=== PATIENT | male | born 1970 | race Two or more races ===

== ENCOUNTER 2017-07-14 17:13 | Emergency (ER) | payer SELFPAY ==
[2017-07-14 17:25] VITALS: TEMP 98; BMI 31.9
--- NOTE | 2017-07-14 17:30 | PDOC ---
Rapid Medical Evaluation Chief Complaint: Blood Pressure Problem Time Seen by Provider: 07/14/17 17:25 Medical Evaluation: Allergies Allergy/AdvReac Type Severity Reaction Status Date / Time No Known Allergies Allergy Verified 07/14/17 17:21 Vital Signs Temp Pulse Resp BP Pulse Ox 98 F 63 19 186/100 99 07/14/17 17:21 07/14/17 17:21 07/14/17 17:21 07/14/17 17:21 07/14/17 17:21 07/14/17 17:25 Pt c/o:sent from urgent care clinic after being seen for leg pain and had nioted elevated BP. Pt states hxof htn but not on meds x 3 years. Pt asymptomatic Pt on brief exam: 180/100, lcta, no edema, hr 63 Pt ordered for : cbc, comp, ua, cxr, ekg Pt to proceed to the ED Discharge Disposition - Diagnosis Abnormal blood pressure - Referrals - Patient Instructions - Post Discharge Activity
[2017-07-14 18:04] LABS: BASO % 0.8 % (0-2.0); EOS % 1.5 % (0-4.5); HEMATOCRIT 46.7 % (35.4-49); HEMOGLOBIN 15.9 GM/dL (11.7-16.9); LYMPH % 26.8 % (8-40); MCH 31.4 pg (25.7-33.7); MCHC 34.1 g/dl (32.0-35.9); MEAN CELL VOLUME 91.9 fl (80-96); MEAN PLT VOLUME 9.7 fl (7.5-11.1); MONO % 9.4 % (3.8-10.2); NEUT % 61.5 % (42.8-82.8); PLATELET COUNT 284 K/MM3 (134-434); RBC 5.08 M/mm3 (4.00-5.60); WHITE BLOOD COUNT 8.3 K/mm3 (4.0-10.0)
[2017-07-14 18:24] LABS: ALBUMIN 3.8 g/dl (3.4-5.0); ALK PHOS 108 U/L (45-117); ANION GAP 5 (8-16); BILIRUBIN,TOTAL 0.3 mg/dL (0.2-1.0); BLOOD UREA NITROGEN 11 mg/dL (7-18); CALCIUM 8.5 mg/dL (8.5-10.1); CHLORIDE 108 mmol/L (98-107); CO2 26 mmol/L (21-32); CREATININE 0.8 mg/dL (0.7-1.3); GLUCOSE,RANDOM 87 mg/dL (74-106); POTASSIUM 3.9 mmol/L (3.5-5.1); SGOT/AST 21 U/L (15-37); SGPT/ALT 39 U/L (12-78); SODIUM 139 mmol/L (136-145); TOT PROT 7.6 g/dl (6.4-8.2)
[2017-07-14 18:36] LABS: URINE APPEARANCE CLEAR; URINE BILIRUBIN NEGATIVE (<2.0 mg/dL); URINE BLOOD NEGATIVE (NEGATIVE); URINE COLOR YELLOW; URINE GLUCOSE (UA) NEGATIVE (NEGATIVE); URINE KETONE NEGATIVE (NEGATIVE); URINE LEUK ESTERASE NEGATIVE (NEGATIVE); URINE NITRITE NEGATIVE (NEGATIVE)
[2017-07-14 18:39] LABS: URINE PROTEIN 1+ (NEGATIVE)
[2017-07-14 18:41] LABS: EPI CELLS RARE /HPF (FEW); URINE MUCUS RARE
[2017-07-14] MEDS ORDERED: HYDROCHLOROTHIAZIDE 25 MG TABLET (FP) PO ONE (19:00)
[2017-07-14] MEDS ORDERED: amLODIPine BESYLATE 10 MG TABLET (FP) PO ONE (19:01)
[2017-07-14] MEDS ORDERED: HYDROCHLOROTHIAZIDE 25 MG TABLET (FP) ONE (19:02)
[2017-07-14] MEDS ORDERED: amLODIPine BESYLATE 5 MG TABLET (FP) ONE (19:04)
--- NOTE | 2017-07-14 19:58 | PDOC ---
History of Present Illness - General History Source: Patient Exam Limitations: No Limitations - History of Present Illness Initial Comments: The patient is a 46 year old female with a significant past medical history of hypertension who presents to the emergency department for evaluation of high blood pressure and right calf swelling. The patient reports being referred to ED from [facility] for evaluation of high blood pressure. The patient reports being given Keflex from clinic for possible infection of right calf. The patient admits he has not been on medication of hypertension for 5 years. The patient denies chest pain, shortness of breath, headache, and dizziness. Denies fevers, chills, nausea, vomiting, diarrhea, and constipation. Denies dysuria, frequency, urgency, and hematuria. Allergies: NKDA Past surgical history: Cardiac catheterization Social history: No reported cigarette, alcohol, or drug use. <Lesley Gleason - Last Filed: 07/14/17 20:00> <Ann Lara - Last Filed: 07/14/17 20:58> - General Chief Complaint: Blood Pressure Problem Stated Complaint: BLOOD PRESSURE Time Seen by Provider: 07/14/17 17:25 Past History <Lesley Gleason - Last Filed: 07/14/17 20:00> - Past Medical History COPD: No HTN: Yes - Suicide/Smoking/Psychosocial Hx Smoking History: Never smoked <Ann Lara - Last Filed: 07/14/17 20:58> - Past Medical History Allergies/Adverse Reactions: Allergies Allergy/AdvReac Type Severity Reaction Status Date / Time No Known Allergies Allergy Verified 07/14/17 17:21 Review of Systems - Review of Systems Able to Perform ROS?: Yes Comments:: CONSTITUTIONAL: Absent: fever, chills, diaphoresis, generalized weakness, malaise, loss of appetite HEENT: Absent: rhinorrhea, nasal congestion, throat pain, throat swelling, difficulty swallowing, mouth swelling, ear pain, eye pain, visual Changes CARDIOVASCULAR: Absent: chest pain, syncope, palpitations, irregular heart rate, lightheadedness , peripheral edema RESPIRATORY: Absent: cough, shortness of breath, dyspnea with exertion, orthopnea, wheezing, stridor, hemoptysis GASTROINTESTINAL: Absent: abdominal pain, abdominal distension, nausea, vomiting, diarrhea, constipation, melena, hematochezia GENITOURINARY: Absent: dysuria, frequency, urgency, hesitancy, hematuria, flank pain, genital pain MUSCULOSKELETAL: Absent: myalgia, arthralgia, joint swelling SKIN: Absent: rash, itching, pallor HEMATOLOGIC/IMMUNOLOGIC: Absent: easy bleeding, easy bruising, lymphadenopathy, frequent infections ENDOCRINE: Absent: unexplained weight gain, unexplained weight loss, heat intolerance, cold intolerance NEUROLOGIC: Absent: headache, focal weakness or paresthesias, dizziness, unsteady gait, seizure, mental status changes, bladder or bowel incontinence PSYCHIATRIC: Absent: anxiety, depression, suicidal or homicidal ideation, hallucinations. <Lesley Gleason - Last Filed: 07/14/17 20:00> *Physical Exam - Vital Signs Last Vital Signs Temp Pulse Resp BP Pulse Ox 98 F 62 18 177/95 100 07/14/17 17:21 07/14/17 19:53 07/14/17 19:53 07/14/17 19:53 07/14/17 18:29 - Physical Exam Comments: GENERAL: Well developed, well nourished. Awake and alert. No acute distress. HEENT: Normocephalic, atraumatic. PERRLA, EOMI. No conjunctival pallor. Sclera are non- icteric. Moist mucous membranes. Oropharynx is clear. NECK: Supple. Full ROM. No JVD. Carotid pulses 2+ and symmetric, without bruits. No thyromegaly. No lymphadenopathy. CARDIOVASCULAR: Regular rate and rhythm. No murmurs, rubs, or gallops. Distal pulses are 2+ and symmetric. PULMONARY: No evidence of respiratory distress. Lungs clear to auscultation bilaterally. No wheezing, rales or rhonchi. ABDOMINAL: Soft. Non-tender. Non-distended. No rebound or guarding. No organomegaly. Normoactive bowel sounds. MUSCULOSKELETAL Normal range of motion at all joints. No bony deformities or tenderness. No CVA tenderness. EXTREMITIES: (+)[id number] area of induration, no red streaking. SKIN: Warm and dry. Normal capillary refill. No rashes. No jaundice. NEUROLOGICAL: Alert, awake, appropriate. Cranial nerves 2-12 intact. No deficits to light touch and temperature in face, upper extremities and lower extremities. No motor deficits in the in face, upper extremities and lower extremities. Normoreflexic in the upper and lower extremities. Normal speech. Toes are down- going bilaterally. PSYCHIATRIC: Cooperative. Good eye contact. Appropriate mood and affect. <Lesley Gleason - Last Filed: 07/14/17 20:00> - Vital Signs Last Vital Signs Temp Pulse Resp BP Pulse Ox 98 F 62 18 177/95 100 07/14/17 17:21 07/14/17 19:53 07/14/17 19:53 07/14/17 19:53 07/14/17 18:29 <Ann Lara - Last Filed: 07/14/17 20:58> ED Treatment Course - LABORATORY CBC & Chemistry Diagram: 07/14/17 17:47 07/14/17 17:47 - ADDITIONAL ORDERS Additional order review: Laboratory Results 07/14/17 07/14/17 18:20 17:47 Sodium 139 Potassium 3.9 Chloride 108 H Carbon Dioxide 26 Anion Gap 5 L BUN 11 Creatinine 0.8 Creat Clearance w eGFR > 60 Random Glucose 87 Calcium 8.5 Total Bilirubin 0.3 AST 21 ALT 39 Alkaline Phosphatase 108 Total Protein 7.6 Albumin 3.8 Urine Color Yellow Urine Appearance Clear Urine pH 6.0 Ur Specific [place] 1.023 Urine Protein 1+ H Urine Glucose (UA) Negative Urine Ketones Negative Urine Blood Negative Urine Nitrite Negative Urine Bilirubin Negative Urine Urobilinogen 2.0 Ur Leukocyte Esterase Negative Urine WBC (Auto) <1 Urine RBC (Auto) <1 Ur Epithelial Cells Rare Urine Mucus Rare 07/14/17 17:47 RBC 5.08 MCV 91.9 MCHC 34.1 RDW 15.0 MPV 9.7 Neutrophils % 61.5 Lymphocytes % 26.8 Monocytes % 9.4 Eosinophils % 1.5 Basophils % 0.8 - Medications Given in the ED: ED Medications Discontinued Medications Generic Name Dose Route Start Last Admin Trade Name Freq PRN Reason Stop Dose Admin Amlodipine Besylate 10 mg 07/14/17 19:01 07/14/17 19:05 Norvasc - PO 07/14/17 19:02 10 mg ONCE ONE Administration Hydrochlorothiazide 25 mg 07/14/17 19:00 07/14/17 19:03 Hctz - PO 07/14/17 19:01 25 mg ONCE ONE Administration <Lesley Gleason - Last Filed: 07/14/17 20:00> - LABORATORY CBC & Chemistry Diagram: 07/14/17 17:47 07/14/17 17:47 - ADDITIONAL ORDERS Additional order review: Laboratory Results 07/14/17 07/14/17 18:20 17:47 Sodium 139 Potassium 3.9 Chloride 108 H Carbon Dioxide 26 Anion Gap 5 L BUN 11 Creatinine 0.8 Creat Clearance w eGFR > 60 Random Glucose 87 Calcium 8.5 Total Bilirubin 0.3 AST 21 ALT 39 Alkaline Phosphatase 108 Total Protein 7.6 Albumin 3.8 Urine Color Yellow Urine Appearance Clear Urine pH 6.0 Ur Specific [place] 1.023 Urine Protein 1+ H Urine Glucose (UA) Negative Urine Ketones Negative Urine Blood Negative Urine Nitrite Negative Urine Bilirubin Negative Urine Urobilinogen 2.0 Ur Leukocyte Esterase Negative Urine WBC (Auto) <1 Urine RBC (Auto) <1 Ur Epithelial Cells Rare Urine Mucus Rare 07/14/17 17:47 RBC 5.08 MCV 91.9 MCHC 34.1 RDW 15.0 MPV 9.7 Neutrophils % 61.5 Lymphocytes % 26.8 Monocytes % 9.4 Eosinophils % 1.5 Basophils % 0.8 - RADIOLOGY Radiology Studies Ordered: Category Date Time Status DUPLEX VASCUL US-1 LEG [US] Stat Ultrasound 07/14/17 18:57 Completed - Medications Given in the ED: ED Medications Discontinued Medications Generic Name Dose Route Start Last Admin Trade Name Freq PRN Reason Stop Dose Admin Amlodipine Besylate 10 mg 07/14/17 19:01 07/14/17 19:05 Norvasc - PO 07/14/17 19:02 10 mg ONCE ONE Administration Hydrochlorothiazide 25 mg 07/14/17 19:00 07/14/17 19:03 Hctz - PO 07/14/17 19:01 25 mg ONCE ONE Administration <Ann Lara - Last Filed: 07/14/17 20:58> *DC/Admit/Observation/Transfer - Attestations Scribe Attestion: Documentation prepared by Lesley Gleason, acting as medical assistant prn for Ann Lara MD. <Lesley Gleason - Last Filed: 07/14/17 20:00> <Ann Lara - Last Filed: 07/14/17 20:58> Diagnosis at time of Disposition: Hypertension Qualifiers: Hypertension type: essential hypertension Qualified Code(s): I10 - Essential ( primary) hypertension Injury of leg, right, superficial, infected Qualifiers: Encounter type: initial encounter Qualified Code(s): S80.921A - Unspecified superficial injury of right lower leg, initial encounter; L08.9 - Local infection of the skin and subcutaneous tissue, unspecified; L08.9 - Local infection of the skin and subcutaneous tissue, unspecified - Discharge Dispostion Disposition: HOME Condition at time of disposition: Stable - Patient Instructions Printed Discharge Instructions: DI for High Blood Pressure, DI for Wound Infection Additional Instructions: please take all your antibiotics please take your blood pressure medications Follow up with your regular doctor
[2017-07-14 21:43] VITALS: BP 175/85; PULSE 70
== END 2017-07-14 21:44 | disposition home or self-care (01) ==
LOC: JER 17:13
DX: I10 Essential (primary) hypertension (principal); L08.9 Local infection of the skin and subcutaneous tissue, unspecified
CPT/HCPCS: 36415; 71045-TC-FY; 80053; 81003; 81015; 85025; 93971-TC; 99284-25

== ENCOUNTER 2022-11-24 18:18 | Inpatient (IN) | payer OTHER ==
[2022-11-24] MEDS ORDERED: AMIODARONE HCL 150 MG/3 ML VIAL ONE (18:42)
[2022-11-24] MEDS: AMIODARONE IN DEXTROSE,ISO-OSM 360 MG/200 ML BAG IV SCH ×2 (18:50→19:50)
[2022-11-24] MEDS ORDERED: AMIODARONE HCL 150 MG/3 ML VIAL IVPUSH ONE (19:04)
[2022-11-24] MEDS ORDERED: AMIODARONE HCL INJECTION 150 MG in DEXTROSE 5%-WATER - 100 ML IVPB ONE (19:06)
[2022-11-24] MEDS ORDERED: MIDAZOLAM HCL 2 MG/2 ML SINGLE DOSE VIAL IVPUSH ONE (19:12)
[2022-11-24] MEDS ORDERED: MIDAZOLAM HCL 2 MG/2 ML SINGLE DOSE VIAL ONE (19:14)
[2022-11-24] MEDS ORDERED: WATER IVPB ONE (19:15)
[2022-11-24] MEDS ORDERED: PROCAINAMIDE HCL IVPB ONE (19:15)
[2022-11-24] MEDS ORDERED: DEXTROSE 5% IVPB ONE (19:15)
[2022-11-24] MEDS ORDERED: AMIODARONE IN DEXTROSE,ISO-OSM 360 MG/200 ML BAG ONE (19:19)
[2022-11-24 19:25] LABS: BASO % 0.3 % (0-2.0); EOS % 0.3 % (0-4.5); HEMOGLOBIN 17.1 GM/dL (11.7-16.9); LYMPH % 6.7 % (8-40); MCH 30.2 pg (25.7-33.7); MCHC 32.2 g/dl (32.0-35.9); MEAN CELL VOLUME 93.8 fl (80-96); MEAN PLT VOLUME 10.9 fl (7.5-11.1); MONO % 4.8 % (3.8-10.2); NEUT % 87.9 % (42.8-82.8); PLATELET COUNT 306 10^3/uL (134-434); RBC 5.66 M/mm3 (4.00-5.60); RDW 14.5 % (11.9-15.9); WHITE BLOOD COUNT 15.7 K/mm3 (4.0-10.0)
[2022-11-24] MEDS ORDERED: SODIUM CHLORIDE 0.9% 500 ML INFUS.BAG IV ONE ×2 (19:39→19:40)
[2022-11-24 20:02] LABS: CHLORIDE 104 mmol/L (98-107); SODIUM 140 mmol/L (136-145)
[2022-11-24 20:05] LABS: ALBUMIN 3.9 g/dl (3.4-5.0); ANION GAP 9 MMOL/L (8-16); BLOOD UREA NITROGEN 20.1 mg/dL (7-18); CALCIUM 9.1 mg/dL (8.5-10.1); CO2 26 mmol/L (21-32); GLUCOSE,RANDOM 177 mg/dL (74-106); LIPASE 125 U/L (73-393); MAGNESIUM 2.3 mg/dL (1.8-2.4)
[2022-11-24 20:08] LABS: SGOT/AST 20 U/L (15-37); SGPT/ALT 33 U/L (13-61)
[2022-11-24 20:09] LABS: BILIRUBIN,TOTAL 0.4 mg/dL (0.2-1); TOT PROT 7.8 g/dl (6.4-8.2)
[2022-11-24 20:10] LABS: N-TERMINAL BNP 75.4 pg/ml (5-125)
[2022-11-24 20:11] LABS: ALK PHOS 129 U/L (45-117)
[2022-11-24 20:45] LABS: EPI CELLS >36 /uL (0-25.1); HYALINE CASTS 34 /uL (0-3.1); PH,URINE 5.5 (5.0-8.0); URINE APPEARANCE CLOUDY; URINE BACTERIA 7 /uL (0-1359); URINE BILIRUBIN NEGATIVE (NEGATIVE); URINE COLOR YELLOW; URINE GLUCOSE (UA) NEGATIVE (NEGATIVE); URINE KETONE TRACE (NEGATIVE); URINE LEUK ESTERASE NEGATIVE (NEGATIVE); URINE NITRITE NEGATIVE (NEGATIVE); URINE PROTEIN 2+ (NEGATIVE); URINE RBC 37 /uL (0-23.9); URINE WBC 22 /uL (0-25.8)
[2022-11-24 21:14] LABS: LACTIC ACID 2.9 mmol/L (0.4-2.0)
[2022-11-24 21:38] VITALS: RESP 18
[2022-11-24] MEDS ORDERED: METOPROLOL TARTRATE 25 MG TABLET (FP) ONE (21:38)
[2022-11-24] MEDS: METOPROLOL TARTRATE 25 MG TABLET (FP) PO SCH (21:40)
[2022-11-25] MEDS ORDERED: HEPARIN NA (PORCINE) 5,000 UNITS/ML 1ML VIAL IVPUSH PRN ×2 (00:55)
[2022-11-25] MEDS ORDERED: ASPIRIN 325 MG TABLET PO ONE (00:55)
[2022-11-25] MEDS ORDERED: ATORVASTATIN CA 80 MG TABLET (FP) PO SCH (00:57)
[2022-11-25 01:03] VITALS: BMI 29.3
[2022-11-25 01:20] LABS: INR 1.06 (0.83-1.09); PROTHROMBIN TIME (PATIENT) 12.3 SEC (9.7-13.0)
[2022-11-25 01:22] LABS: ACTIVATED PTT 29.2 SECONDS (25.2-36.5)
[2022-11-25] MEDS ORDERED: HEPARIN SOD,PORK IN 0.45% NACL 25,000 UNITS/500 ML INFUS.BAG IVPB SCH (01:30)
[2022-11-25 04:51] LABS: OPIATES, URI NEGATIVE (NEGATIVE); URINE AMPHETAMINES NEGATIVE (NEGATIVE); URINE BARBITURATES NEGATIVE (NEGATIVE)
[2022-11-25 04:52] LABS: PHENCYCLIDINE,URINE NEGATIVE (NEGATIVE)
[2022-11-25 05:45] LABS: COCAINE, UR NEGATIVE (NEGATIVE); METHADONE, UR NEGATIVE (NEGATIVE); URINE BENZODIAZEPINES POSITIVE (NEGATIVE)
[2022-11-25] MEDS: INSULIN SLIDING SCALE (NOVOLOG) 1 VIAL SQ SCH ×2 (06:52→12:21)
[2022-11-25] MEDS ORDERED: INSULIN SLIDING SCALE (NOVOLOG) 1 VIAL SQ SCH (07:00)
[2022-11-25 09:38] LABS: BASO % 0.5 % (0-2.0); EOS % 0.3 % (0-4.5); HEMATOCRIT 46.4 % (35.4-49); HEMOGLOBIN 15.6 GM/dL (11.7-16.9); LYMPH % 10.1 % (8-40); MCH 30.4 pg (25.7-33.7); MCHC 33.7 g/dl (32.0-35.9); MEAN CELL VOLUME 90.4 fl (80-96); MEAN PLT VOLUME 10.6 fl (7.5-11.1); MONO % 9.7 % (3.8-10.2); NEUT % 79.4 % (42.8-82.8); PLATELET COUNT 243 10^3/uL (134-434); RBC 5.14 M/mm3 (4.00-5.60); WHITE BLOOD COUNT 15.6 K/mm3 (4.0-10.0)
[2022-11-25] MEDS: METOPROLOL TARTRATE 25 MG TABLET (FP) PO SCH (09:43)
[2022-11-25] MEDS ORDERED: ASPIRIN 81 MG CHEWABLE TABLETS PO SCH (10:00)
[2022-11-25] MEDS ORDERED: ENOXAPARIN NA (PORCINE) 40 MG/0.4 ML DISP.SYRIN SQ SCH (10:00)
[2022-11-25 10:09] LABS: POTASSIUM 3.7 mmol/L (3.5-5.1)
[2022-11-25 10:16] LABS: CALCIUM 8.4 mg/dL (8.5-10.1)
[2022-11-25 10:17] LABS: ALBUMIN 3.2 g/dl (3.4-5.0); BLOOD UREA NITROGEN 18.3 mg/dL (7-18); CREATININE 0.8 mg/dL (0.55-1.3); MAGNESIUM 2.1 mg/dL (1.8-2.4)
[2022-11-25 10:19] LABS: BILIRUBIN,TOTAL 0.4 mg/dL (0.2-1); TOT PROT 6.5 g/dl (6.4-8.2)
[2022-11-25 11:46] VITALS: TEMP 98
[2022-11-25 14:17] VITALS: BP 143/97; PULSE 73
[2022-11-25] MEDS ORDERED: ATORVASTATIN CA 40 MG TABLET (FP) PO SCH (22:00)
== END 2022-11-25 15:15 | disposition short-term general hospital (02) | DRG 190 ==
LOC: JER 18:18 → JERBED 19:43 → J4W 11-25 00:07
PROVIDERS: ADMIT Internal Medicine; ATTEND Internal Medicine
DX: I21.4 Non-ST elevation (NSTEMI) myocardial infarction (principal); N17.9 Acute kidney failure, unspecified; I95.9 Hypotension, unspecified; R00.0 Tachycardia, unspecified
CPT/HCPCS: 0241U-QW; 36415; 71045-TC-FY; 74176-TC; 80053; 80307; 81003; 82550; 82553; 82962; 83036; 83605; 83690; 83735; 83880; 84100; 84443; 84484; 85025; 85610; 85730; 86850; 86900; 86901; 87086; 93005; 93010; 93306-TC; 99291